=== PATIENT | male | born 2005 | race Two or more races ===

== ENCOUNTER 2024-11-01 20:43 | Emergency (ER) | payer OTHER ==
[~2024-11-01] VITALS: Ht 182.9 cm; Wt 72.6 kg
[2024-11-01] MEDS ORDERED: KETOROLAC TROMETHAMINE INJ 30 MG/ML VIAL ONE (23:02)
[2024-11-01] MEDS: KETOROLAC TROMETHAMINE INJ 30 MG/ML VIAL IM ONE (23:12)
[2024-11-02] MEDS ORDERED: KETO10TA2 PO (01:39)
[2024-11-02 01:44] VITALS: BP 124/79; TEMP 98.3; O2SAT 97
== END 2024-11-02 01:45 | disposition home or self-care (01) ==
LOC: ER 20:49
DX: S40.011A Contusion of right shoulder, initial encounter (principal); M25.561 Pain in right knee; M54.50 Low back pain, unspecified; V43.62XA Car passenger injured in collision with other type car in traffic accident, initial encounter; Y93.89 Activity, other specified; Y92.488 Other paved roadways as the place of occurrence of the external cause; Y99.8 Other external cause status
CPT/HCPCS: 99285; 71250; 96372; 73552; 73560; 73030; 74176; J1885